=== PATIENT | female | born 1950 | race African-American/Black ===

== ENCOUNTER 2022-11-10 06:12 | Day surgery (SDC) | payer OTHER ==
[~2022-11-10] VITALS: Ht 157.5 cm; Wt 72.2 kg
[2022-11-10] VITALS (17 sets, daily range): BP systolic 123–162; BP diastolic 65–91; PULSE 51–98; RESP 9–16
[2022-11-10] MEDS ORDERED: CEFAZOLIN SODIUM 2 GM VIAL ONE (07:02)
[2022-11-10] MEDS ORDERED: 0.9%NACL 1000ML 1,000 ML IV ONE (07:02)
[2022-11-10 07:04] LABS: HEMATOCRIT 37.6 % (36-48); MEAN CORPUSCULAR HEMOGLOBIN 30.2 pg (27.0-33.0); MEAN CORPUSCULAR VOLUME 91.7 fL (79-99); PLATELET COUNT (AUTO) 216 K/uL (130-400); RED CELL DISTRIBUTION WIDTH 12.8 % (11.0-15.5); WHITE BLOOD COUNT (AUTO) 8.1 K/uL (4.8-10.8)
[2022-11-10 07:07] LABS: APPEARANCE,URINE CLEAR (CLEAR); BILIRUBIN,URINE NEGATIVE (NEGATIVE); COLOR,URINE LIGHT-YELLOW (YELLOW); GLUCOSE, URINE (UA) NEGATIVE (NEGATIVE); KETONES,URINE NEGATIVE (NEGATIVE); LEUKOCYTE ESTERASE ,URINE NEGATIVE Leu/uL (NEGATIVE); NITRATE,URINE NEGATIVE (NEGATIVE); OCCULT BLOOD,URINE NEGATIVE (NEGATIVE); PH,URINE 5.5 (5.0-8.0); PROTEIN,URINE NEGATIVE (NEGATIVE); UROBILINOGEN,URINE 0.2 mg/dL (0.2-1.0)
[2022-11-10 07:11] LABS: ADD UA MICROSCOPIC NO
[2022-11-10 07:15] LABS: INR 0.94 (0.85-1.15); PROTHROMBIN TIME 10.9 SEC (9.6-11.6)
[2022-11-10 07:16] LABS: PARTIAL THROMBOPLASTIN TIME 27.4 SEC (26.3-35.5)
[2022-11-10 07:18] LABS: ALBUMIN 3.7 g/dL (3.5-5.0); BILIRUBIN,TOTAL 0.3 mg/dL (0.2-1.0); CREATININE 0.8 mg/dL (0.5-1.5); POTASSIUM 4.2 mmol/L (3.5-5.1); TOTAL PROTEIN, SERUM 7.4 g/dL (6.0-8.3)
[2022-11-10] MEDS ORDERED: BUPIVACAINE/PF 0.25% 30ML VIAL IJ ONE (07:32)
[2022-11-10 07:42] LABS: EOSINOPHILS % (MANUAL) 1 % (1-6); LYMPHOCYTES % (MANUAL) 35 % (22-44); MONOCYTES % (MANUAL) 2 % (2-9); SEGMENTED NEUTROPHILS % 62 % (40-70); TOTAL CELLS COUNTED 100
[2022-11-10 07:43] LABS: MAN.DIFF COMMENT-IMPRESSION MANUAL DIFFERENTIAL; PLATELET MORPHOLOGY COMMENT ADEQUATE; WBC MORPHOLOGY SLIDE REVIEWED
[2022-11-10] MEDS ORDERED: LIFI1DRO OP (08:09)
[2022-11-10] MEDS ORDERED: MULT-1367 PO (08:09)
[2022-11-10] MEDS ORDERED: LIDOCAINE HCL MPF 1% 5ML VIAL ONE (08:12)
[2022-11-10] MEDS ORDERED: ROCURONIUM 10MG/1ML SYR 10 MG/ML ML ONE (08:13)
[2022-11-10] MEDS ORDERED: MIDAZOLAM HCL 1 MG/ML 2ML VIAL ONE (08:13)
[2022-11-10] MEDS ORDERED: PROPOFOL 10 MG/ML 20ML VIAL IV ONE (08:13)
[2022-11-10] MEDS ORDERED: FENTANYL CITRATE PF 50 MCG/1 ML 2ML VIAL ONE ×2 (08:13→09:03)
[2022-11-10] MEDS ORDERED: CEFAZOLIN SODIUM 2 GM VIAL IVPB ONE (08:20)
[2022-11-10] MEDS ORDERED: DEXAMETHASONE SOD PHOSPHATE 4 MG/ML 1ML VIAL ONE (08:54)
[2022-11-10] MEDS ORDERED: ONDANSETRON 4MG INJ ONE (08:55)
[2022-11-10] MEDS ORDERED: BUPIVACAINE/EPI/PF 0.25% 50 ML VIAL IJ ONE (09:00)
[2022-11-10] MEDS ORDERED: KETOROLAC 30MG VIAL (30MG/ML) ONE (09:14)
== END 2022-11-10 11:05 | disposition home or self-care (01) ==
LOC: DAH 06:12
PROVIDERS: ATTEND Student in an Organized Health Care Education/Training Program
DX: D17.24 Benign lipomatous neoplasm of skin and subcutaneous tissue of left leg (principal); D17.1 Benign lipomatous neoplasm of skin and subcutaneous tissue of trunk; F41.9 Anxiety disorder, unspecified; E11.9 Type 2 diabetes mellitus without complications; K21.9 Gastro-esophageal reflux disease without esophagitis; Z79.01 Long term (current) use of anticoagulants; Z79.899 Other long term (current) drug therapy; Z90.710 Acquired absence of both cervix and uterus; Z98.890 Other specified postprocedural states; Z87.891 Personal history of nicotine dependence; Z82.49 Family history of ischemic heart disease and other diseases of the circulatory system; Z82.3 Family history of stroke; Z83.3 Family history of diabetes mellitus; Z88.8 Allergy status to other drugs, medicaments and biological substances; Z91.040 Latex allergy status
CPT/HCPCS: 21931; 80053; 85025; 85610; 85730; 82948 ×2; 81003; 36415; 88304; 27327; 93005; J1100; A4663; J7030 ×2; J3010 ×2; J3490 ×3; J2250; J2704; J2405; J1885; J0690 ×2; A4930; A4215; A4223; A4222; A4221